=== PATIENT | female | born 1990 | race Caucasian/White ===

== ENCOUNTER 2016-10-18 10:18 | Emergency (ER) | payer OTHER ==
[~2016-10-18] VITALS: Ht 160 cm; Wt 63.5 kg
[2016-10-18 10:21] VITALS: BP 116/75
[2016-10-18] MEDS ORDERED: NAPR500T8 PO (10:41)
[2016-10-18] MEDS ORDERED: HYDR-971 PO (10:41)
--- NOTE | 2016-10-18 10:42 | PHYS DOC ---
Past Medical History Past Medical History: No Pertinent History Past Surgical History: Tubal ligation Additional Past Surgical Histo: BLADDER SLING Alcohol Use: Occasionally Drug Use: None Adult General Chief Complaint Chief Complaint: DENTAL PROBLEM HPI HPI Patient is a 26 year old female who presents with left lower gum dental pain that began 3 days ago. Patient states she was seen by the dentist on Wednesday and had a dental abscess drained. Patient states she was put on clindamycin, ibuprofen and hydrocodone. She states she has continued to have dental pain. She states the clindamycin is giving her acid reflex. Patient denies any fever or trismus. Review of Systems Review of Systems Constitutional: Denies fever or chills [] Eyes: Denies change in visual acuity, redness, or eye pain [] HENT: Dental pain Integument: Denies rash or skin lesions [] Neurologic: Denies headache, focal weakness or sensory changes [] Endocrine: Denies polyuria or polydipsia [] Allergies Allergies Allergies Coded Allergies Type Severity Reaction Last Updated Verified No Known Drug Allergies 12/19/14 No Physical Exam Physical Exam Constitutional: Well developed, well nourished, no acute distress, non-toxic appearance. [] HENT: Normocephalic, atraumatic, bilateral external ears normal, oropharynx moist, no oral exudates, nose normal. [] No dental abscess noted on exam. Scattered amount of dental caries throughout her teeth. Eyes: PERRLA, EOMI, conjunctiva normal, no discharge. [] Skin: Warm, dry, no erythema, no rash. [] Back: No tenderness, no CVA tenderness. [] Extremities: No tenderness, no cyanosis, no clubbing, ROM intact, no edema. [] Neurologic: Alert and oriented X 3, normal motor function, normal sensory function, no focal deficits noted. [] Psychologic: Affect normal, judgement normal, mood normal. [] Current Patient Data Vital Signs Vital Signs Date Time Temp Pulse Resp B/P (MAP) Pulse Ox O2 Delivery O2 Flow Rate FiO2 10/18/16 10:21 98.0 60 18 98 Room Air 98.0 EKG EKG [] Radiology/Procedures Radiology/Procedures [] Course & Med Decision Making Course & Med Decision Making Pertinent Labs and Imaging studies reviewed. (See chart for details) Patient is in the ED with ongoing dental pain after dental abscess was drained 3 days ago. She is on clindamycin and she is complaining its giving her acid reflex. Informed patient I can switch her to a different antibiotic or she can try and take [id number] antiacids including omeprazole. Patient was okay with taking [id number] antiacids. Prescription for Zofran was also given to her. She will stay on clindamycin and was given 10 tablets of hydrocodone and naproxen. She'll follow-up with her dentist in the course of this week. Dragon Disclaimer Dragon Disclaimer This electronic medical record was generated, in whole or in part, using a voice recognition dictation system. Departure Departure Impression: Primary Impression: Dentalgia Additional Impression: Dental caries Disposition: 01 HOME, SELF-CARE Condition: STABLE Referrals: NO PCP (PCP) Follow-up with your dentist this week Patient Instructions: Dental Caries Additional Instructions: You were seen for dental pain. Follow-up with your dentist in the course of this week. Continue taking antibiotics. Ensure you take omeprazole once a day. You can take the nausea medicines as needed. Take the antibiotics with food to prevent acid reflux Scripts Naproxen (NAPROXEN) 500 Mg Tablet. 1 TAB PO BID, #60 TAB 1 Refill Prov: FERNANDO DAWSON APRN 10/18/16 Hydrocodone/Apap 5-325 (NORCO 5-325 TABLET) 1 Each Tablet 1-2 TAB PO Q4-6HRS, #10 TAB Prov: FERNANDO DAWSON APRN 10/18/16 Problem Qualifiers FERNANDO DAWSON APRN Oct 18, 2016 10:42
== END 2016-10-18 10:53 | disposition home or self-care (01) ==
LOC: ER 10:18
DX: K02.9 Dental caries, unspecified (principal); Z98.51 Tubal ligation status
CPT/HCPCS: 99283

== ENCOUNTER 2017-08-31 19:57 | Emergency (ER) | payer SELFPAY, OTHER ==
[2017-08-31] MEDS: HYDROcodone/APAP 5/325MG 1 TAB TABLET PO (21:30)
[2017-08-31] MEDS: IBUPROFEN 800 MG TABLET. PO (21:30)
[2017-08-31] MEDS: CLINDAMYCIN IM 600 MG/4 ML VIAL. IM (22:11)
== END 2017-08-31 23:00 | disposition home or self-care (01) ==
LOC: ER 19:57
DX: S80.212A Abrasion, left knee, initial encounter (principal); Z79.891 Long term (current) use of opiate analgesic; Z79.2 Long term (current) use of antibiotics; Z79.1 Long term (current) use of non-steroidal anti-inflammatories (NSAID); V89.2XXA Person injured in unspecified motor-vehicle accident, traffic, initial encounter; Y93.89 Activity, other specified; Y92.410 Unspecified street and highway as the place of occurrence of the external cause; Y99.8 Other external cause status
CPT/HCPCS: 73562; 93971; 96372; 99284; J3490